=== PATIENT | female | born 1930 | race Caucasian/White ===

== ENCOUNTER → 2019-09-24 | Outpatient (CLI) | payer MEDICARE ==
[~2019-09-24] MED LIST: BENA1TAB12 PO; CALC-80 PO; FLAXSEED OIL PO; FLEX-A-MIN PO; HYDR-3583 PO; LVT.1T PO; MULT-608 PO; OMEG1CAP51 PO
== END ==
LOC: CARD 12:06
PROVIDERS: ATTEND Internal Medicine
DX: R00.2 Palpitations (principal)
CPT/HCPCS: 93005

== ENCOUNTER → 2020-02-07 | Outpatient (CLI) | payer MEDICARE | LOC: LABNPT 06:24 | PROVIDERS: ATTEND Orthopaedic Surgery | DX: Z01.812 Encounter for preprocedural laboratory examination (principal); Z20.828 Contact with and (suspected) exposure to other viral communicable diseases | CPT/HCPCS: 87635 ==

== ENCOUNTER → 2021-02-10 | Outpatient (CLI) | payer MEDICARE | LOC: LABNPT 08:14 | PROVIDERS: ATTEND Internal Medicine | DX: R53.83 Other fatigue (principal); R63.0 Anorexia; Z20.822 Contact with and (suspected) exposure to COVID-19 | CPT/HCPCS: 87635 ==